=== PATIENT | female | born 2005 | race Two or more races ===

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

== ENCOUNTER 2025-01-31 23:38 | Emergency (ER) | payer MEDICAID, SELFPAY ==
[2025-01-31 23:39] VITALS: BMI 21.0
[2025-02-01 00:15] VITALS: BP 128/78; PULSE 66; RESP 16; TEMP 36.9; O2SAT 98
[2025-02-01 00:15] LABS: Basophils # (Auto) 0.0 Thou/mm3 (0.0-0.2); Basophils % (Auto) 0 % (0-2.5); Eosinophils # (Auto) 0.2 Thou/mm3 (0.0-0.5); Eosinophils % (Auto) 3 % (0-10); Hematocrit 37.3 % (36.0-46.0); Hemoglobin 12.8 g/dL (12.0-16.0); Immature Granulocytes Auto 0.02 Thou/mm3 (0.00-0.00); Lymphocytes # (Auto) 2.8 Thou/mm3 (1.0-5.0); Lymphocytes % (Auto) 33 % (10-50); Mean Corpuscular HGB Conc 34.3 g/dl (31.0-37.0); Mean Corpuscular Hemoglobin 29.0 pg (25.0-35.0); Mean Corpuscular Volume 84 fL (80-100); Monocytes # (Auto) 0.5 Thou/mm3 (0.0-0.8); Monocytes % (Auto) 6 % (0-12); Neutrophils # (Auto) 4.8 Thou/mm3 (1.8-7.7); Neutrophils % (Auto) 58 % (37-80); Nucleated Red Blood Cell # 0.00 Thou/mm3 (0.00-0.00); Nucleated Red Blood Cell % 0 /100 WBC (0); Platelet Count 222 Thou/mm3 (140-440); RDW Standard Deviation 36.6 fL (36.4-46.3); Red Blood Count 4.42 Miln/mm3 (4.00-5.20); White Blood Count 8.4 Thou/mm3 (4.5-11.0)
[2025-02-01 00:28] LABS: INR 1.0 (0.9-1.3); Partial Thromboplastin Time 28.2 Seconds (22.0-36.0); Prothrombin Time 11.2 Seconds (9.0-12.2)
[2025-02-01 00:32] LABS: B-Type Natriuretic Peptide < 20 pg/mL (0-100)
[2025-02-01 00:32] LABS: Collection Type, Urine Clean Catch
[2025-02-01 00:40] LABS: Bilirubin,Urine 1+ (Negative); Blood,Urine 3+ (Negative); Clarity,Urine Turbid (Clear/Hazy); Color,Urine Drk-Orange (Lt Yel-Yel); Culture Indicated,Urine Contaminated; Glucose, Urine Negative (Negative); Ketones,Urine Negative (Negative); Leukocyte Esterase,Urine Positive (Negative); Nitrite,Urine Positive (Negative); PH,Urine 6.0 (5.0-7.0); Protein,Urine 1+ (Neg - Trace); RBC,Urine 180 /hpf (0-3); Specific Gravity,Urine 1.030 (1.001-1.035); Squamous Epithelial Cell,Urine 14 /hpf (0-5); Urobilinogen,Urine 4.0 mg/dL (0.0-1.0); WBC,Urine 216 /hpf (0-5)
[2025-02-01 00:41] LABS: HCG Qualitative,Urine Negative
[2025-02-01 00:44] LABS: Alanine Aminotransferase 9 U/L (10-49); Albumin, Serum 4.9 gm/dL (3.5-5.0); Albumin/Globulin Ratio 1.9 (1.2-2.2); Alkaline Phosphatase 62 U/L (46-116); Anion Gap 10 (7-16); Aspartate Amino Transferase 18 U/L (0-34); BUN/Creatinine Ratio 14 Ratio (12-20); Bilirubin,Total 0.9 mg/dL (0.3-1.2); Blood Urea Nitrogen 10 mg/dL (9-23); Calcium 9.7 mg/dL (8.3-10.6); Calcium (Corrected) 9.7 mg/dL (8.5-10.1); Carbon Dioxide 25.3 mMol/L (20.0-31.0); Chloride 105 mMol/L (98-107); Creatinine (Component) 0.7 mg/dL (0.6-1.3); Estimated Creatinine Clearance 102.2 mL/min (>60); Globulin 2.6 gm/dL (2.3-3.5); Glucose 97 mg/dL (74-106); Lipase 38 U/L (12-53); Magnesium 1.6 mg/dL (1.6-2.6); Osmolality,Calculated 278 (275-295); Potassium 4.0 mMol/L (3.4-5.1); Sodium 140 mMol/L (136-145); Total Protein 7.5 gm/dL (5.7-8.2); eGFR > 60 See Note
[2025-02-01 02:10] LABS: Amphetamine/Methamp Scrn,U Negative (Negative); Barbiturate Screen,Urine Negative (Negative); Benzodiazepines Screen,Urine Negative (Negative); Benzoylecgonine Screen, Ur Negative (Negative); Fentanyl Screen,Urine Negative (Negative); Opiate Screen,Urine Negative (Negative); THC Screen,Urine Negative (Negative)
--- NOTE | 2025-02-01 02:46 | PD.EDFMALE ---
ED Female Urogenital RME/HPI General Chief complaint: Urogenital-Female Stated complaint: LOWER ABD PAIN TODAY Time Seen by Provider: 02/01/25 00:24 Arrival date/time: 01/31/25 23:38 RME / HPI RME / HPI Narrative: 19-year-old female presents to the ED with complaint of dysuria and frequency as well as nausea. Symptoms began today. She took Azo which is not helping much. She just ended her menstrual cycle in the last few days. She denies fever or chills, vomiting or diarrhea. She has suprapubic pain and low back pain but denies any flank pain. Related Data Previous Rx's ?Medication ?Instructions ?Recorded acetaminophen 300 mg-codeine 30 mg 2 tab PO Q8H PRN pain #20 tabs 10/08/24 tablet albuterol sulfate 90 mcg/actuation 2 puff inhalation Q6H PRN 10/08/24 aerosol inhaler shortness of breath or wheezing #8.5 grams prednisone 50 mg tablet 50 mg PO QDAY #3 tabs 10/08/24 nitrofurantoin 100 mg PO BID #10 caps 02/01/25 monohydrate/macrocrystals 100 mg capsule (Macrobid) Allergies Allergy/AdvReac Type Severity Reaction Status Date / Time No Known Allergies Allergy Verified 01/31/25 23:38 Review of Systems Review of Systems Systems Reviewed: All systems reviewed, normal except as documented Past Medical History Past Medical History CARDIAC: Negative Cardiac Disorders or Congestive Heart Failure RESPIRATORY: Negative Chronic Obstructive Pulmonary Disease (COPD) or Asthma GENITOURINARY: Negative Renal Disease ENDOCRINE: Negative Diabetes Mellitus Type 1 or Diabetes Mellitus Type 2 HEMATOLOGIC: Negative Sickle Cell Disease Family History FAMILY HISTORY: Negative Family Anesthesia Reaction Social History SMOKING STATUS: Never smoker SECOND HAND EXPOSURE: No SUBSTANCE USE: does not use ED Exam Narrative Physical exam: A&O, afebrile and non-toxic appearing 19-year-old female, no acute distress. Lung sounds are clear, RRR, no CVA tenderness. Positive bilateral lower back tenderness. Abdomen is soft, mild suprapubic and pelvic tenderness. Abdomen is non-distended. Moves all extremities well. Course Course Course Narrative: CBC reveals a normal white count, normal H&H and normal platelets. Coags are normal. CMP reveals normal electrolytes, normal renal function and normal liver function. Lipase is normal at 38. Urinalysis reveals turbid dark orange urine with a specific gravity of 1.030 with 1+ protein, 3+ blood, positive nitrites and leukocyte esterase, 180 RBCs and 216 WBCs with 14 epithelial cells. No bacteria is noted though urine hCG is negative. Urine tox screen is negative. Given the patient's symptoms with nausea, and positive nitrites and leukocyte esterase, she has a clinical UTI. She was started on antibiotics with ceftriaxone 1 g IM. Quality Measures none Orders Category Date Time Status EKG (ED Only) Stat Exams 01/31/25 23:40 Stop Req B-Type Natriuretic Peptide Stat Lab 01/31/25 23:54 Completed CBC Stat Lab 01/31/25 23:54 Completed Comprehensive Metabolic Panel Stat Lab 01/31/25 23:54 Completed Drug Screen,Urine Stat Lab 02/01/25 00:13 Completed HCG Qualitative,Urine Stat Lab 01/31/25 00:13 Completed Lipase Stat Lab 01/31/25 23:54 Completed Magnesium Stat Lab 01/31/25 23:54 Completed Partial Thromboplastin Time Stat Lab 01/31/25 23:54 Completed Prothrombin Time with INR Stat Lab 01/31/25 23:54 Completed UA, C/S IF [Urinalysis, C/S if Indicated] Stat Lab 01/31/25 00:13 Completed cefTRIAXone [Rocephin] 1,000 mg Med 02/01/25 02:37 Discontinued Lidocaine 1% 20 ml [Xylocaine 1% 20 ML] 2.1 ml IM X1 Vital Signs Vital signs: Vital Signs Temperature 98.4 F 02/01/25 00:15 Pulse Rate 66 02/01/25 00:15 Respiratory Rate 16 02/01/25 00:15 Blood Pressure 128/78 02/01/25 00:15 Pulse Oximetry (%) 98 02/01/25 00:15 Oxygen Delivery Method Room Air 02/01/25 00:15 Urogenital - Female MDM Narrative MDM Narrative:: Symptoms, exam and diagnostic studies are consistent with: Acute lower urinary tract infection. Patient was discharged home in stable condition. Patient/family advised to follow-up with their PCP in 24-48 hours. Encouraged to return to the ED for any new or worsening symptoms. Patient data External records reviewed:: None Clinical information provided by:: patient Social determinants that could affect healthcare access:: none Patient has the following chronic illnesses:: N/A How is presenting disease/condition affected by chronic disease/condition?: no chronic disease Evaluation data The following diagnostics were reviewed and interpreted by me:: lab results Lab and/or radiology exams considered but not ordered:: N/A Interpretation Summary: Clinical UTI Medications / Prescriptions Medications or Prescriptions considered but not ordered:: N/A Medication administrations:: Medication Administration History Discontinued Medications Ceftriaxone Sodium 1,000 mg/ (Lidocaine HCl 2.1 ml) 0 mg IM X1 ONE Stop: 02/01/25 02:38 As noted above Consultations Consultation(s) initiated? (list below): No Diagnosis Urogenital Female Differential Diagnosis: urinary tract infection and cystitis Most likely diagnosis given after review of the tests above:: Clinical UTI Admission Indicated Admission indicated?: not indicated Explain why admission is indicated or not indicated:: Patient is stable for discharge Admission Request Was there a request for admission?: No Admission Attestation Admission request attestation: N/A Disposition Plan Disposition Plan: Discharge Discharge Attestation Discharge Attestation: The patient and all family members were given an opportunity to ask questions and understood the discharge instructions. Discharge instructions specifically effects, indications for sooner follow up or return to the emergency department, and the expected course of current diagnosis. Patient condition: Stable Discharge Plan Plan Patient Disposition: HOME (Self Care) Discharge Disposition comment: Stable Prescriptions/Referrals Prescriptions/Med Rec: New nitrofurantoin monohyd/m-cryst [Macrobid] 100 mg capsule 100 mg PO BID Qty: 10 0RF Rx Instructions: must administer with a meal/food No Action acetaminophen-codeine 300-30 mg tablet 2 tab PO Q8H MDD 6 PRN (Reason: pain) Qty: 20 0RF prednisone 50 mg tablet 50 mg PO QDAY Qty: 3 0RF albuterol sulfate 90 mcg/actuation HFA aerosol inhaler 2 puff inhalation Q6H PRN (Reason: shortness of breath or wheezing) Qty: 8.5 0RF Referrals: Benny Yarbrough MD [Primary Care Provider] - In 1 week Problem List Clinical Impression: Urinary tract infection, Cystitis Patient/Caregiver Discharge Instructions Education Materials: Urinary Tract Infections in Women, ED CYSTITIS Female Adult Additional Instructions: Take the antibiotics as prescribed and complete the course even though you may be feeling better. Follow-up with your primary care physician in 24 to 48 hours. Return to the ED for any new or worsening symptoms. Print Language: Jamaican Stand Alone Forms: Shayna Award Info., Patient Portal Info Letter PA/RETAIL SALES CLERK Supervising Physician PA/RETAIL SALES CLERK Supervising Physician: Dr. Campuzano
[2025-02-01] MEDS: cefTRIAXone 1,000 MG, LIDOCAINE 1% 20 ML 2.1 ML IM (02:47)
[2025-02-01 03:01] VITALS: RESP 16
== END 2025-02-01 03:09 | disposition home or self-care (01) ==
PROVIDERS: Emergency Provider Emergency Medicine; PCP Family Medicine
DX: N30.90 Cystitis, unspecified without hematuria (principal)
CPT/HCPCS: 36415; 80053; 80307; 81001; 81025; 83690; 83735; 83880; 85025; 85610; 85730; 87086; 96372; 99284; J0696; J3490